=== PATIENT | female | born 1975 | race Caucasian/White ===

== ENCOUNTER 2019-01-11 11:36 | Outpatient (CLI) | payer BC ==
[~2019-01-11] VITALS: Ht 175.3 cm; Wt 90.2 kg
[2019-01-11 12:01] VITALS: BP 142/79
[2019-01-11] MEDS ORDERED: LEVO100T7 PO (14:27)
[2019-01-11] MEDS ORDERED: IBUP-1780 PO (14:27)
[2019-01-11] MEDS ORDERED: CNC1KV IM (14:27)
[2019-01-11] MEDS ORDERED: POTA10TA10 PO (14:27)
[2019-01-11] MEDS ORDERED: CLON0.5T13 PO (14:27)
[2019-01-11] MEDS ORDERED: TOFA5TAB PO (14:27)
[2019-01-11] MEDS ORDERED: GABA-486 PO (14:27)
[2019-01-11] MEDS ORDERED: CITA40TA11 PO (14:27)
[2019-01-11] MEDS ORDERED: MELA1TAB15 PO (14:27)
[2019-01-11] MEDS ORDERED: HYDR25TA4 PO (14:27)
== END 2019-01-11 12:05 | disposition home or self-care (01) ==
LOC: PREOP 11:36
PROVIDERS: ATTEND Podiatrist Foot & Ankle Surgery
DX: Z01.818 Encounter for other preprocedural examination (principal)
CPT/HCPCS: 87081

== ENCOUNTER 2019-01-29 06:06 | Day surgery (SDC) | payer BC ==
[2019-01-29] VITALS (12 sets, daily range): BP systolic 134–150; BP diastolic 72–86
[~2019-01-29] VITALS: Ht 175.3 cm; Wt 90.2 kg
[~2019-01-29 06:06] MED LIST: CITA40TA11 PO; CLON0.5T13 PO; CNC1KV IM; GABA-486 PO; HYDR25TA4 PO; IBUP-1780 PO; LEVO100T7 PO; MELA1TAB15 PO; POTA10TA10 PO; TOFA5TAB PO
[2019-01-29] MEDS ORDERED: ceFAZolin INJECTION 1,000 MG in WATER (STERILE) FOR INJECTION 10 ML IV ONE (06:45)
[2019-01-29] MEDS: LACTATED RINGERS 1,000 ML IV PRN ×2 (06:54→08:55)
[2019-01-29] MEDS ORDERED: proPOfol 200 MG/20 ML (DIPRIVAN) VIAL IV ONE (07:02)
[2019-01-29] MEDS ORDERED: MIDAZOLAM 2 MG/2 ML (VERSED) VIAL ONE (07:02)
[2019-01-29] MEDS ORDERED: SEVOFLURANE (ULTANE) 15 ML INHAL SOLN ONE ×2 (07:02→09:03)
[2019-01-29] MEDS ORDERED: DEXAMETHASONE 10 MG/ML (DECADRON) 1 ML VIAL ONE ×2 (07:02→07:09)
[2019-01-29] MEDS ORDERED: LIDOCAINE PF 2% 5 ML (XYLOCAINE) VIAL ONE (07:02)
[2019-01-29] MEDS ORDERED: ONDANSETRON 4 MG/2 ML (SDV) Z0FRAN ONE (07:02)
[2019-01-29] MEDS ORDERED: fentaNYL INJECTION 100 MCG/2 ML AMP ONE (07:02)
[2019-01-29] MEDS ORDERED: BUPIVACAINE 0.5% 30 ML (SENSORCAINE) VIAL ONE (07:09)
[2019-01-29] MEDS ORDERED: ceFAZolin INJECTION 1,000 MG ONE (07:17)
[2019-01-29] MEDS ORDERED: WATER (STERILE) FOR INJECTION 10 ML ONE (07:17)
[2019-01-29] MEDS ORDERED: CATHETER FLUSH 10 ML SYR IV PRN (07:30)
--- NOTE | 2019-01-29 07:38 | Progress Note-Pre Operative ---
Pre-Operative Progress Note H&P Reviewed The H&P was reviewed, patient examined and no changes noted. Date Seen by Provider: Jan 29, 2019 Time Seen by Provider: 07:38 Date H&P Reviewed: Jan 29, 2019 Time H&P Reviewed: 07:38 Pre-Operative Diagnosis: Tarsal Tunnel Syndrome, Plantar Fasciitis, right foot KEMI GALLEGOS DPM Jan 29, 2019 07:38
[2019-01-29] MEDS ORDERED: GLYCOPYRROLATE 0.2 MG/ML (ROBINUL) 2 ML VIAL ONE (07:47)
[2019-01-29] MEDS ORDERED: KETOROLAC 30 MG/ML VIAL ONE (08:33)
[2019-01-29] MEDS ORDERED: LACTATED RINGERS 1,000 ML IV SCH (09:08)
--- NOTE | 2019-01-29 09:08 | Progress Note-Post Operative ---
Post-Operative Progess Note Surgeon (s)/Auto Parker (s) Surgeon KEMI GALLEGOS DPM Auto Parker: None Pre-Operative Diagnosis Tarsal Tunnel Syndrome, Plantar Fasciitis, right foot Post-Operative Diagnosis Same Procedure & Operative Findings Date of Procedure 01/29/19 Procedure Performed/Findings Tarsal Tunnel Release, Plantar Fascial Release, right foot Anesthesia Type General Estimated Blood Loss Estimated blood loss (mL): Minimal Specimens/Packing Specimens Removed Plantar Fascia, right foot KEMI GALLEGOS DPM Jan 29, 2019 09:08
[2019-01-29] MEDS ORDERED: ACHD5005 PO (09:11)
[2019-01-29] MEDS ORDERED: ONDANSETRON 4 MG/2 ML (SDV) Z0FRAN IVP PRN (09:15)
[2019-01-29] MEDS ORDERED: HYDROmorphone 2 MG/ML VIAL (DILAUDID) IV ONE (09:15)
[2019-01-29] MEDS ORDERED: HYDROcodone/APAP 5 MG/325 MG (LORTAB) TAB PO PRN (09:15)
--- NOTE | 2019-01-29 10:31 | Anesthesia-General Post-Op ---
General Patient Condition Mental Status/LOC: Same as Preop Cardiovascular: Satisfactory Nausea/Vomiting: Absent Respiratory: Satisfactory Pain: Controlled Complications: Absent Post Op Complications Complications None Follow Up Care/Instructions Patient Instructions None needed. Anesthesia/Patient Condition Patient Condition Patient is doing well, no complaints, stable vital signs, no apparent adverse anesthesia problems. No complications reported per nursing. SAMEERA HENDRIX CRNA Jan 29, 2019 10:31
--- NOTE | 2019-01-29 10:32 | OPERATIVE REPORT ---
DATE OF SERVICE: 01/29/2019 SURGEON: Lorraine Gallegos DPM. PREOPERATIVE DIAGNOSES: 1. Tarsal tunnel syndrome, right. 2. Valadez's neuritis, right. 3. Plantar fasciitis, right. POSTOPERATIVE DIAGNOSES: 1. Tarsal tunnel syndrome, right. 2. Valadez's neuritis, right. 3. Plantar fasciitis, right. PROCEDURES: 1. Release of the right tarsal tunnel. 2. Release of Valadez's nerve. 3. Plantar fascial release, all right foot. WOUND CLASS: Clean. ANESTHESIA: General. HEMOSTASIS: Pneumatic thigh tourniquet at 300 mmHg. INDICATIONS: This is a 43-year-old female, who presents complaining of a painful right heel. Conservative therapy with unsatisfactory results and the patient is agreeable to surgical intervention after risks and complications were discussed at length. No guarantees were extended to the patient and she is willing to proceed. DESCRIPTION OF PROCEDURE: The patient was brought back to the operating table, placed in secure supine position. Appropriate timeout was performed. A general anesthetic was then induced. A thigh tourniquet was placed on the right lower extremity over several layers of padding. The right foot was then prepped and draped in normal sterile manner. The right foot was then elevated, allowed to exsanguinate after which the tourniquet was inflated to 300 mmHg. Attention was then directed to the medial aspect of the right rearfoot where an 11 cm longitudinal linear incision was created just inferior to the medial malleolus area and into the posterior aspect of the medial malleolus extending inferiorly along the tarsal tunnel into the inferior aspect of the foot just anterior to the heel contact portion of the right heel or fat pad. The incision was deepened in the same plane with great care to identify and retract all vital neurovascular structures. Only necessary blood vessels were cauterized as encountered. Blunt dissection was carried out into the deep fascia. The deep fascia overlying the abductor hallucis muscle belly was performed. Next, the flexor retinaculum was identified and it was carefully released utilizing a combination of blunt and sharp dissection. The underlying neurovascular structures were carefully retracted as the flexor retinaculum was released all the way to the medial malleolus area. The venae comitantes and posterior tibial artery were identified. The wound was flushed with copious amounts of normal saline. Some varicosities within the tarsal tunnel were identified. Attention was then directed to the deep fascia in between the abductor hallucis muscle belly and the quadratus plantae. This area was carefully dissected and released following the neurovascular bundle into the plantar aspect of the foot. Next, blunt and sharp dissection was carried out to the inferior aspect of the abductor hallucis muscle belly to aid in visualization, the medial band of the plantar fascia was released. Utilizing a hemostat, the deep fascia was followed to the inferior aspect of the foot between the abductor hallucis and the quadratus plantae muscle bellies. From the inferior aspect, the deep fascia was also released completing the release of the Valadez's nerve. Quite a bit of tension to the deep fascia was released at this point and with digital dilation. The soft tissue was found to be released sufficiently. Attention was then directed to the central band of the plantar fascia, which was found to be quite enlarged. Approximately 1 cm section was released and the section was sent for gross and microscopic evaluation. The underlying flexor muscle belly was found to be intact without any pathology. The wound was flushed with copious amounts of normal saline and closure was then performed. Prior to closure; however, the tourniquet was released noting no active bleeders except for the superficial venous. Cautery was then performed. The tourniquet was reinflated and closure was then performed with 4-0 Vicryl for superficial closure as well and then followed by 4-0 Prolene for skin closure in a horizontal mattress type stitch. Postoperative injection consisted of 16 mL of 0.5% Marcaine injected in a local infusion to the surgical site with great care not to penetrate vascular structures. A 10 mg dexamethasone was also injected into the plantar fascia area and the distal tarsal tunnel. Postoperative dressing consisted of Betadine soaked Adaptic, sterile 4 x 4, sterile Kerlix all secured with soft roll and posterior splint with two Otf wraps. The patient tolerated the anesthesia and procedure well, was transported from the operating room to the recovery area with vital signs stable and vascular status intact to all digits of the right foot. Postoperative instructions were dispensed to the patient as well as prescription for hydrocodone. She is to follow up in my office in 10 days' period of time or sooner if necessary. Job ID: [id number] DocumentID: [id number] Dictated Date: 01/29/2019 09:20:26 Soil Technician Date: 01/29/2019 10:31:55 Dictated By: LORRAINE GALLEGOS DPM
--- NOTE | 2019-01-29 11:05 | Physical Therapy Ortho Eval ---
PT Orthopedic Evaluation Type of Surgery tarsal tunnel synd; plantar fascia synd R Prior Level of Function Current Living Status: Friend Locomotion (Upon Admit): Independent Established Durable Medical Eq: Crutches (knee scooter) Subjective Subjective Agrees to PT. Report her will help her up/down the steps. Reports she has been practicing the knee scooter and crutches Entry Into Home: Stairs Without Railing (2) Motor Control Motor Control: Motor Control WNL ROM ROM: WFL Strength Strength: WFL Transfer Transfers (B, C, W/C) (FIM): 4 (Pt was SBA after treatment; spouse reported he would be able to assist as needed. ) Gait Gait Assistive Device: Crutches Right Lower Extremity: Right Weight Bearing Status RLE: Non Weight Bearing Left Lower Extremity: Left Weight Bearing Status LLE: Full Weight Bearing Instruction in NWB status and safe use of crutches on all surfaces as well as knee scooter Gait (FIM): 4 (Pt is SB-CGA post treatement but spouse reports he will be able to help as needed. ) Distance (FIM): [phone] ft Distance: 50 ft Gait Level of Assist: 4 (CGA for safety.) Summary/Comments Gait training on level surfaces; pt and spouse training up/down a step with education on safety and sequencing; they demonstrated correct performance. Treatment Rendered Treatment: Gait Train, Step Train Assessment/Goals Goal Time Frame: 1 Visit Safe Ambulation: Yes Plan Treatment Plan: Discharge PT/Family Agrees to Plan: Yes Time Time In: 1040 Time Out: 1100 Total Billed Treatment Time: 20 Billed Treatment Time visit EVL 20 JUVENTINO CORRAL PT Jan 29, 2019 11:05
== END 2019-01-29 11:10 | disposition home or self-care (01) ==
LOC: SDC 06:06
PROVIDERS: ATTEND Podiatrist Foot & Ankle Surgery
DX: G57.51 Tarsal tunnel syndrome, right lower limb (principal); M72.2 Plantar fascial fibromatosis; M79.2 Neuralgia and neuritis, unspecified; Z88.2 Allergy status to sulfonamides; Z79.1 Long term (current) use of non-steroidal anti-inflammatories (NSAID); Z79.899 Other long term (current) drug therapy; Z88.8 Allergy status to other drugs, medicaments and biological substances; D64.9 Anemia, unspecified; M06.9 Rheumatoid arthritis, unspecified; M79.7 Fibromyalgia; I73.00 Raynaud's syndrome without gangrene
CPT/HCPCS: 84703; 88305